=== PATIENT | male | born 1975 | race Hispanic/Latino ===

== ENCOUNTER 2018-04-23 16:19 | Emergency (ER) | payer SELFPAY ==
[2018-04-23] MEDS ORDERED: KETOROLAC TROMETHAMINE 30MG/ML ONE (18:03)
== END 2018-04-23 18:14 | disposition home or self-care (01) ==
LOC: EDH 16:19
DX: S46.811A Strain of other muscles, fascia and tendons at shoulder and upper arm level, right arm, initial encounter (principal); X50.0XXA Overexertion from strenuous movement or load, initial encounter; Y93.89 Activity, other specified; Y92.69 Other specified industrial and construction area as the place of occurrence of the external cause; Y99.8 Other external cause status
CPT/HCPCS: 96372; 99283; J1885

== ENCOUNTER 2019-04-08 13:12 | Emergency (ER) | payer BC | END 2019-04-08 14:24 | disposition home or self-care (01) | LOC: EDH 13:12 | DX: S93.492A Sprain of other ligament of left ankle, initial encounter (principal); Z72.0 Tobacco use; X58.XXXA Exposure to other specified factors, initial encounter; Y93.89 Activity, other specified; Y92.89 Other specified places as the place of occurrence of the external cause; Y99.8 Other external cause status | CPT/HCPCS: 73610 ==

== ENCOUNTER 2022-12-20 15:48 | Emergency (ER) | payer BC, OTHER ==
[~2022-12-20] VITALS: Ht 165.1 cm; Wt 117.9 kg
[2022-12-20] MEDS ORDERED: NAPR375T6 PO (17:10)
[2022-12-20 17:29] VITALS: BP 142/89
== END 2022-12-20 17:28 | disposition home or self-care (01) ==
LOC: EDH 15:48
DX: G89.29 Other chronic pain (principal); M25.562 Pain in left knee
CPT/HCPCS: 99282